=== PATIENT | female | born 1950 | race Caucasian/White ===

== ENCOUNTER 2020-09-16 13:39 | Outpatient (CLI) | payer MEDICARE, SELFPAY ==
--- NOTE | 2020-09-16 14:00 | ECHO_ITS ---
Patient Info Name: Sherri Calzada Age: 69 years : 1950 Gender: Female Ht: 62 in Wt: 290 lbs BSA: 2.49 m2 HR: 86 bpm BP: 154 / 84 mmHg Technical Quality: Fair Exam Date: 09/16/2020 2:12 PM Exam Location: [facility] Patient Status: Outpatient Admit Date: 09/16/2020 Staff Ordering Physician: Javid Roy DO Stem Lead Former: Krystina Carcamo RDCS Attending Provider: Javid Roy DO Referring Physician: Kirill POLLOCK; Exam Type: CA echo doppler color flow Study Info Indications - palpitations Complete two-dimensional, color flow and Doppler transthoracic echocardiogram is performed. Summary 1. Complete two-dimensional, color flow and Doppler transthoracic echocardiogram is performed. 2. Left ventricular chamber dimension is normal. 3. Left ventricular systolic function is normal, estimated at 55-60%. 4. The left ventricular diastolic function is grade I diastolic dysfunction. 5. E/e' 9 is minimally elevated. 6. Left atrial chamber dimension is mildly enlarged. 7. No pulmonary hypertension, estimated pulmonary arterial systolic pressure is 29 mmHg. Left Ventricle E/e' 9 is minimally elevated. Left ventricular chamber dimension is normal. Left ventricular systolic function is normal, estimated at 55-60%. The left ventricular diastolic function is grade I diastolic dysfunction. Right Ventricle Right ventricular chamber dimension is normal. Right ventricular systolic function is normal. Left Atria Left atrial chamber dimension is mildly enlarged. Right Atria Right atrial chamber dimension is normal. Aortic Valve The aortic valve is not well visualized. Cannot determine number of aortic valve leaflets. There is no aortic valve stenosis. There is no aortic valve regurgitation. Pulmonic Valve There is no pulmonic regurgitation. Mitral Valve There is no mitral valve stenosis. There is no mitral valve regurgitation. Tricuspid Valve There is no tricuspid valve regurgitation. No pulmonary hypertension, estimated pulmonary arterial systolic pressure is 29 mmHg. Pericardium/Pleural There is no pericardial effusion. Inferior Vena Cava Normal inferior vena cava with >50% collapse upon inspiration consistent with normal right atrial pressure, 5 mmHg. Aorta The aortic root size at the sinus of Valsalva is normal. Left Ventricular Outflow Tract Name Value Normal LVOT 2D LVOT Diameter 2.0 cm LVOT Doppler LVOT Peak Gradient 6 mmHg LVOT Mean Gradient 4 mmHg LVOT VTI 28 cm LVOT VTI/AV VTI Ratio 0.9 LVOT Stroke Volume 88 ml LVOT CO 17.2 l/min LVOT CI 6.9 l/min/m2 Pulmonic Valve Name Value Normal PV Doppler
--- NOTE | 2020-09-20 12:41 | WPDHOLTEREM ---
Holter/Event Monitor Holter/Event Monitor Date of procedure: 09/16/20 Procedure Type: 24 hour holter monitor Indications: Palpitations Conclusion: 1. 24 hour holter monitor on 09/16/20. 2. Underlying rhythm is sinus rhythm. HR range 59-135 bpm; average HR 82 bpm. 3. There are 95 premature supraventricular complexes and 3 supraventricular couplets. No supraventricular tachycardia. 4. No premature ventricular complexes. No ventricular tachycardia. 5. No sinoatrial or atrioventricular blocks. No significant pauses greater than 2 seconds. 6. Patient reports symptoms of heart pounding which demonstrate sinus rhythm, HR range 79-82 bpm.
== END 2020-09-16 13:40 | disposition home or self-care (01) ==
PROVIDERS: PCP Internal Medicine; Visit Provider Internal Medicine
DX: R00.2 Palpitations (principal)
CPT/HCPCS: 93225; 93226; 93306

== ENCOUNTER → 2020-11-24 17:24 | Outpatient (CLI) | payer MEDICARE, SELFPAY ==
--- NOTE | ~2020-11-24 | MM_ITS ---
EXAMINATION: MM screening aby BI w yonas HISTORY: Screening TECHNIQUE: Craniocaudal and mediolateral oblique 3-D tomosynthesis images were obtained and synthetic 2-D images were generated. CAD analysis was submitted and interpreted. COMPARISON: No prior mammogram is available for comparison at this institution. BREAST PARENCHYMAL COMPOSITION: The breasts are almost entirely fatty. FINDINGS: There is no evidence of suspicious mass, calcification, or architectural distortion to sugg est malignancy in either breast. There has been no suspicious interval change. IMPRESSION: 1. No mammographic evidence of malignancy. 2. Recommend routine screening mammography in one year. BI-RADS Category 1: Negative Reviewed, dictated and finalized at location A.
== END ==
PROVIDERS: PCP Internal Medicine; Visit Provider Internal Medicine
DX: Z12.31 Encounter for screening mammogram for malignant neoplasm of breast (principal)
CPT/HCPCS: 77063; 77067

== ENCOUNTER 2022-05-15 01:31 | Day surgery (SDC) | payer MEDICARE, SELFPAY ==
[2022-04-30 14:57] VITALS: BMI 48.4
[2022-05-15 09:10] VITALS: BP 145/52; PULSE 81; RESP 18; TEMP 35.4; O2SAT 95; BMI 48.1
[2022-05-15] MEDS: LACTATED RINGERS 1,000 ML 150 ML IV CONT (09:38)
[2022-05-15 09:39] LABS: Glucose Point of Care 124 mg/dl (65-105)
--- NOTE | 2022-05-15 09:44 | WPDANESEPPF ---
Anes - Initial Pre Proc Eval Procedure: Operation Date: 05/15/22 10:15 Proposed Procedures p Esophagogastroduodenoscopy & Screening Colonoscopy - Lyle Randall MD Date/Time: 05/15/22 09:44 Surgeon: Lyle Randall MD Pre Op Diagnosis: neoplasm screening, dysphagia Patient Data Age: 71 Gender: F Height: 1.57 m Weight: 119.4 kg Last Vital Signs Temp 35.4 C L 05/15/22 09:10 Pulse 81 05/15/22 09:10 Resp 18 05/15/22 09:10 BP 145/52 H 05/15/22 09:10 Pulse Ox 95 05/15/22 09:10 O2 Del Method Room Air 05/15/22 09:10 Allergies Allergy/AdvReac Type Severity Reaction Status Date / Time amoxicillin Allergy Unknown Unknown Verified 05/15/22 09:23 codeine Allergy Unknown Unknown Verified 05/15/22 09:23 nickel Allergy Unknown unknown Verified 05/15/22 09:23 Penicillins Allergy Unknown Unknown Verified 05/15/22 09:23 AMOXICILLIN TRIHYDRATE Allergy Mild Unknown Uncoded 05/15/22 09:23 TAPE Allergy Mild SKIN Uncoded 05/15/22 09:23 IRRITION Home Medications Medication Instructions Recorded Confirmed Type ibuprofen 200 mg capsule 200 mg PO Q6H PRN pain 01/07/20 05/15/22 History acetaminophen 325 mg capsule 325 mg PO Q6H PRN Pain 08/23/20 05/15/22 History (Tylenol) bupropion HCl 150 mg 24 hr tablet, 150 mg PO QAM 01/16/21 05/15/22 History extended release oxybutynin chloride 10 mg 10 mg PO DAILY 01/16/21 05/15/22 History tablet,extended release 24 hr venlafaxine 150 mg 150 mg PO DAILY #30 caps 03/05/21 05/15/22 Rx capsule,extended release 24 hr lisinopril 10 mg tablet 10 mg PO DAILY #90 tabs 02/22/22 05/15/22 Rx metformin 500 mg tablet 500 mg PO BID #180 tabs 02/22/22 05/15/22 Rx sodium,potassium,mag sulfates 17.5 See Rx Instructions PO .COMPLEX 04/06/22 05/15/22 Rx gram-3.13 gram-1.6 gram oral soln #354 mL (Suprep Bowel Prep Kit) atorvastatin 20 mg tablet (Lipitor) 20 mg PO DAILY #90 tabs 04/16/22 05/15/22 Rx Laboratory Tests 05/15/22 09:32 POC Capillary Glucose 124 mg/dl H mg/dl (65-105) Patient hx anesthesia problems: none Family hx anesthesia problems: none Results Review: All pre-operative results and documents have been reviewed as part of the pre-operative evaluation. PMFSH Past Medical History Medical History Hyperglycemia Surgical History Surgical History (Updated 05/15/22 @ 09:47 by Cceilio Farias MD) History of section History of cholecystectomy Family History Family History Mother Patient's mother is Father Patient's father is Other Family history of arthritis Family history of cardiovascular disease Family history of malignant neoplasm Social History Social History Smoking packs per day: 1 Smoking cigarettes per day: 20.0 Smoking status: Former smoker Tobacco type: cigarettes Second hand tobacco smoke exposure: No Smoking end date: 07/22/84 Alcohol intake: never Substance use: never Substance use type: does not use Living arrangements: with family Spiritual care concerns: No Anes - Eval Final PreProcedure Day of Procedure 05/15/22 09:44 Patient weight: morbidly obese Heart: regular rate and rhythm Lungs: clear to auscultation Airway: Mallampati scale class II Neurological: alert and oriented Last oral intake: >/= 8 hours ASA classification: III Emergent: no Anesthetic plan: proceed Anesthesia type and monitoring: general GIVS and standard monitoring Results Review: All pre-operative results and documents have been reviewed as part of the pre-operative evaluation. Informed Consent: The patient's anesthetic plan and its attendant risks and benefits were discussed with the patient/family/POA. Questions were solicited and answers provided to the satisfaction of the patient/f
--- NOTE | 2022-05-15 09:50 | PM.HPGS ---
History of Present Illness History of Present Illness Consent: Risks, benefits, and alternatives have been discussed and questions answered. Patient agrees to proceed with procedure. Chief complaint: neoplasm screening, dysphagia Narrative: Sherri Calzada is a 71 year old female Presents for colonoscopy an EGD. Patient complains of difficulty swallowing because of a dry mouth. She states she has difficulty initiating a swallow. This helps better if her mouth is lubricated an EGD is requested to exclude organic disease in the esophagus. Patient denies any heartburn. Patient also presents for neoplasia screening colonoscopy. Her last colonoscopy 11 years ago was unremarkable. Her family history noncontributory. Patient reports her current weight appetite and bowel movements are normal. Review of Systems Review of Systems: Review of systems noncontributory. [facility] Past Medical History Medical History (Updated 05/15/22 @ 09:52 by Lyle Randall MD) Hyperglycemia Surgical History Surgical History (Updated 05/15/22 @ 09:47 by Cecilio Farias MD) History of section History of cholecystectomy Family History Family History Mother Patient's mother is Father Patient's father is Other Family history of arthritis Family history of cardiovascular disease Family history of malignant neoplasm Social History Social History Smoking packs per day: 1 Smoking cigarettes per day: 20.0 Smoking status: Former smoker Tobacco type: cigarettes Second hand tobacco smoke exposure: No Smoking end date: 07/22/84 Alcohol intake: never Substance use: never Substance use type: does not use Living arrangements: with family Spiritual care concerns: No Meds Home Medications and Allergies Home Medications Medication Instructions Recorded Confirmed Type ibuprofen 200 mg capsule 200 mg PO Q6H PRN pain 01/07/20 05/15/22 History acetaminophen 325 mg capsule 325 mg PO Q6H PRN Pain 08/23/20 05/15/22 History (Tylenol) bupropion HCl 150 mg 24 hr tablet, 150 mg PO QAM 01/16/21 05/15/22 History extended release oxybutynin chloride 10 mg 10 mg PO DAILY 01/16/21 05/15/22 History tablet,extended release 24 hr venlafaxine 150 mg 150 mg PO DAILY #30 caps 03/05/21 05/15/22 Rx capsule,extended release 24 hr lisinopril 10 mg tablet 10 mg PO DAILY #90 tabs 02/22/22 05/15/22 Rx metformin 500 mg tablet 500 mg PO BID #180 tabs 02/22/22 05/15/22 Rx sodium,potassium,mag sulfates 17.5 See Rx Instructions PO .COMPLEX 04/06/22 05/15/22 Rx gram-3.13 gram-1.6 gram oral soln #354 mL (Suprep Bowel Prep Kit) atorvastatin 20 mg tablet (Lipitor) 20 mg PO DAILY #90 tabs 04/16/22 05/15/22 Rx Allergies Allergy/AdvReac Type Severity Reaction Status Date / Time amoxicillin Allergy Unknown Unknown Verified 05/15/22 09:23 codeine Allergy Unknown Unknown Verified 05/15/22 09:23 nickel Allergy Unknown unknown Verified 05/15/22 09:23 Penicillins Allergy Unknown Unknown Verified 05/15/22 09:23 AMOXICILLIN TRIHYDRATE Allergy Mild Unknown Uncoded 05/15/22 09:23 TAPE Allergy Mild SKIN Uncoded 05/15/22 09:23 IRRITION Vital Signs Vital Signs - 24 hr 05/15/22 09:10 Temperature 95.8 F L Pulse Rate 81 Respiratory Rate 18 Blood Pressure 145/52 H Pulse Oximetry 95 Oxygen Delivery Room Air Exam Narrative: Physical exam reveals patient to be alert. Vital signs stable. HEENT exam is unremarkable. Patient is anicteric. Lungs are clear to auscultation and percussion. Heart is without murmur or extra sounds. Abdomen Reveals patient be morbidly obese. bowel sounds are present soft nontender with no organomegaly. Digital external rectal exam is normal. Assessment and Plan Assessment and plan (1) Dysphagia: Code(s): R13.10 - Dysphagia, u
--- NOTE | 2022-05-15 10:19 | SUR.OPER ---
EGD ENDED 1009, COLONOSCOPY STARTED 1017
[2022-05-15 10:32] VITALS: BP 103/53; PULSE 79; RESP 22; O2SAT 97
[2022-05-15 10:42] VITALS: BP 116/64; PULSE 74; RESP 23; O2SAT 97
[2022-05-15 10:52] VITALS: BP 118/66; PULSE 76; RESP 19; O2SAT 98
== END 2022-05-15 10:55 | disposition home or self-care (01) ==
PROVIDERS: PCP Internal Medicine; Visit Provider Internal Medicine Gastroenterology
PROC: 0DJ08ZZ Inspection of Upper Intestinal Tract, Via Natural or Artificial Opening Endoscopic (ICD-10-PCS; CPT 43235; principal; 2022-05-15 10:15)
DX: Z12.11 Encounter for screening for malignant neoplasm of colon (principal); K64.8 Other hemorrhoids; K57.30 Diverticulosis of large intestine without perforation or abscess without bleeding; Q39.4 Esophageal web; Z79.84 Long term (current) use of oral hypoglycemic drugs; Z87.891 Personal history of nicotine dependence; E66.01 Morbid (severe) obesity due to excess calories; Z68.42 Body mass index [BMI] 45.0-49.9, adult
CPT/HCPCS: 43450; 43235; G0121; 82948; J2001; J2704; J7120

== ENCOUNTER → 2022-05-30 13:13 | Outpatient (CLI) | payer MEDICARE, SELFPAY ==
--- NOTE | ~2022-05-30 | MM_ITS ---
EXAMINATION: MM screening aby BI w yonas HISTORY: Screening mammogram TECHNIQUE: Craniocaudal and mediolateral oblique 3-D tomosynthesis images were obtained and synthetic 2-D images were generated. CAD analysis was submitted and interpreted. COMPARISON: 11/24/2020 bilateral screening mammogram.. BREAST PARENCHYMAL COMPOSITION: The breasts are almost entirely fatty. FINDINGS: There is no evidence of suspicious mass, calcification, or architectural distortion to sugg est malignancy in either breast. There has been no suspicious interval change. IMPRESSION: 1. No mammographic evidence of malignancy. 2. Recommend routine screening mammography in one year. BI-RADS Category 1: Negative Reviewed, dictated and finalized at location A. 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
== END ==
PROVIDERS: PCP Internal Medicine; Visit Provider Nurse Practitioner
DX: Z12.31 Encounter for screening mammogram for malignant neoplasm of breast (principal)
CPT/HCPCS: 77063; 77067

== ENCOUNTER → 2022-10-03 11:56 | Outpatient (CLI) | payer MEDICARE, SELFPAY ==
--- NOTE | ~2022-10-03 | XR_ITS ---
AP and lateral views of the left hip Clinical history: Pain Findings: No acute fracture or dislocation is seen. Osseous alignment is anatomic. Mild degenerative change of the left hip noted. Soft tissues are unremarkable. Impression: No fracture or dislocation. Mild osteoarthritis of the left hip. Reviewed, dictated and finalized at location . Impression: No fracture or dislocation. Mild osteoarthritis of the left hip.
--- NOTE | ~2022-10-03 | XR_ITS ---
EXAMINATION: XR lumbar spine 2-3V DATE: 10/03/2022 12:23 INDICATION: Chronic low back pain TECHNIQUE: Anteroposterior and lateral views of the lumbar spine, and cone-down lateral view of the l umbosacral junction were obtained. COMPARISON: None. FINDINGS: Partially lumbarized S1 segment. 9 degree lumbar levocurvature. Sagittal alignment is normal. Vertebr al body heights are normal. Multilevel mild disc height loss and a few small endplate osteophytes thr oughout the lumbar and visualized lower thoracic spine. Lower lumbar predominant multilevel moderate to severe facet osteoarthritis. There is also mild to moderate bilateral sacroiliac osteoarthritis. C holecystectomy clips in right upper quadrant. IMPRESSION: 1. 9 degree lumbar levocurvature with mild spondylosis and multilevel moderate to severe lower lumbar predominant facet osteoarthritis. Reviewed, dictated and finalized at location B.
== END ==
PROVIDERS: PCP Internal Medicine; Visit Provider Internal Medicine
DX: M54.50 Low back pain, unspecified (principal); M25.552 Pain in left hip; M41.86 Other forms of scoliosis, lumbar region; M43.06 Spondylolysis, lumbar region; M85.88 Other specified disorders of bone density and structure, other site; M16.12 Unilateral primary osteoarthritis, left hip
CPT/HCPCS: 72100; 73502

== ENCOUNTER 2023-12-05 07:26 | Outpatient (CLI) | payer MEDICARE, SELFPAY ==
--- NOTE | ~2023-12-05 | DEXA_ITS ---
Bone Density Report Name: XIOMY LOUIS Age: 73 Sex: Female Ethnicity: White Date of : 1950 Indication: postmenopausal; screening for osteoporosis; height loss; Referring Provider: DOMINIC, EMILY Study: Bone densitometry was performed. Exam Date: December 05, 2023 Accession number: [id number] Bone Density: Region BMD T-score Z-score Classification AP Spine (L1-L4) 1.235 1.7 3.9 Normal Femoral Neck (Left) 0.893 0.4 2.3 Normal Total Hip (Left) 1.009 0.6 2.1 Normal Femoral Neck (Right) 1.412 5.1 6.9 Normal Total Hip (Right) 1.130 1.5 3.1 Normal Total Hip Mean 1.070 1.1 2.6 Normal World Health Organization criteria for BMD impression classify patients as: Normal (T-score at or above -1.0), Osteopenia (T-score between -1.0 and -2.5), or Osteoporosis (T-score at or below -2.5). 10-year Fracture Risk: FRAX not reported because: All T-scores for Spine Total, Hip Total, Femoral Neck at or above -1.0 Clinical Information Provided by Patient: Has used the following medications: Vitamin D, Calcium, MTV Patient maximum height was 63.5 Menopause Age: 60 No regular weight bearing exercise Drinks caffeinated beverages Onset of menses at age 14 Number of children 1 Impression: The patient has normal bone mass. Discussion: LOW RISK OF FRACTURE; BONE DENSITY IS WELL ABOVE THE MINIMUM DESIRABLE LEVEL AND ABOVE AVERAGE FOR AGE AND SEX AT ALL SKELETAL SITES TESTED. This person's bone density is above expected limits for age and sex. This is rarely clinically significant, but should be pursued if there are significant musculoskeletal complaints. The patient should follow a healthful lifestyle (good nutrition with adequate calcium and vitamin D, and appropriate weight-bearing exercise). Follow-Up: Consider repeating this study in 5 years or sooner if there is some new clinical indication. Reported by: SUMMER on 12/05/2023 8:23:00 AM. Reviewed, dictated and finalized at location AHernan DALEY
--- NOTE | ~2023-12-05 | MM_ITS ---
EXAMINATION: MM screening aby BI w yonas HISTORY: Screening mammogram TECHNIQUE: Craniocaudal and mediolateral oblique 3-D tomosynthesis images were obtained and synthetic 2-D images were generated. CAD analysis was submitted and interpreted. COMPARISON: 05/30/2022, 11/24/2020 bilateral screening mammogram examinations BREAST PARENCHYMAL COMPOSITION: The breasts are almost entirely fatty. FINDINGS: There is no evidence of suspicious mass, calcification, or architectural distortion to sugg est malignancy in either breast. There has been no suspicious interval change. IMPRESSION: 1. No mammographic evidence of malignancy. 2. Recommend routine screening mammography in one year. BI-RADS Category 1: Negative Reviewed, dictated and finalized at location B.
== END 2023-12-05 07:27 ==
LOC: MICIMG 07:27
PROVIDERS: PCP Internal Medicine; Visit Provider Nurse Practitioner
DX: Z12.31 Encounter for screening mammogram for malignant neoplasm of breast (principal); R29.890 Loss of height; Z78.0 Asymptomatic menopausal state; Z13.820 Encounter for screening for osteoporosis
CPT/HCPCS: 77063; 77067; 77080

== ENCOUNTER 2025-05-18 13:30 | Outpatient (RCR) | payer MEDICARE, SELFPAY ==
[2025-04-01 13:30] VITALS: BMI 45.8
[2025-04-01 13:38] VITALS: BMI 45.8
--- NOTE | 2025-04-21 16:57 | PCDIET ---
MNT consult completed 04/12/25. Pt currently attending [facility] DSMT group sessions.
[2025-05-18 13:40] VITALS: BMI 43.7
--- NOTE | 2025-05-18 15:12 | PCDIET ---
05/18/25: Completed MNT follow up - will benefit from annual MNT follow ups.
== END 2025-06-21 10:46 | disposition home or self-care (01) ==
LOC: ANHDMC 13:30
PROVIDERS: PCP Nurse Practitioner; Visit Provider Internal Medicine
DX: E11.9 Type 2 diabetes mellitus without complications (principal); E66.01 Morbid (severe) obesity due to excess calories; Z71.3 Dietary counseling and surveillance
CPT/HCPCS: 97802; G0108; G0109